=== PATIENT | female | born 1970 | race Asian ===

== ENCOUNTER 2019-03-22 09:41 | Day surgery (SDC) | payer OTHER ==
[~2019-03-22] VITALS: Ht 30.5 cm; Wt 0.5 kg
== END 2019-03-22 13:02 | disposition home or self-care (01) ==
LOC: OR 09:41
PROC: 3E0R33Z Introduction of Anti-inflammatory into Spinal Canal, Percutaneous Approach (ICD-10-PCS; principal; 2019-03-22)
PROC: B01BYZZ Fluoroscopy of Spinal Cord using Other Contrast (ICD-10-PCS; 2019-03-22)
DX: M50.123 Cervical disc disorder at C6-C7 level with radiculopathy (principal)
CPT/HCPCS: J1020

== ENCOUNTER 2019-04-19 09:38 | Day surgery (SDC) | payer OTHER ==
[~2019-04-19] VITALS: Ht 30.5 cm; Wt 0.5 kg
== END 2019-04-19 12:00 | disposition home or self-care (01) ==
LOC: OR 09:38
PROC: 3E0R33Z Introduction of Anti-inflammatory into Spinal Canal, Percutaneous Approach (ICD-10-PCS; principal; 2019-04-19)
PROC: B01BYZZ Fluoroscopy of Spinal Cord using Other Contrast (ICD-10-PCS; 2019-04-19)
DX: M50.123 Cervical disc disorder at C6-C7 level with radiculopathy (principal)
CPT/HCPCS: J1020